=== PATIENT | male | born 1990 | race Caucasian/White ===

== ENCOUNTER 2017-07-27 14:18 | Emergency (ER) | payer SELFPAY ==
[2017-07-27] MEDS ORDERED: Diphtheria,Pertussis(Acell),Tetanus Vaccine 0.5 ML SDV IM ONE (15:15)
[2017-07-27] MEDS ORDERED: Lidocaine/EPINEPHrine/Tetracaine Soln 5 ML Each TOP ONE ×2 (15:15→15:19)
[2017-07-27] MEDS ORDERED: Bacitracin Oint 1 GM U/D Packet TOP ONE (15:59)
--- NOTE | 2017-07-27 16:03 | EDM.PDOC ---
ED HPI GENERAL MEDICAL PROBLEM - General Chief Complaint: Burn Stated Complaint: BURNED WITH BATTERY Time Seen by Provider: 07/27/17 15:07 Source of Information: Reports: Patient History Limitations: Reports: No Limitations - History of Present Illness INITIAL COMMENTS - FREE TEXT/NARRATIVE: 27 you presents to the ER following burn to left ring. He was working on pontoon and had arc from battery to wedding ring. Pt did pull ring off and degloved finger. Last tetanus 2007. Left 4-Ring finger Pain Score (Numeric/FACES): 8 - Related Data Allergies Allergy/AdvReac Type Severity Reaction Status Date / Time cephalexin Allergy Hives Verified 07/27/17 14:48 sulfamethoxazole Allergy Hives Verified 07/27/17 14:48 [From Bactrim] trimethoprim [From Bactrim] Allergy Hives Verified 07/27/17 14:48 Home Meds: Home Meds Ranitidine HCl [Zantac] 1 tab PO BID 07/27/17 [History] Past Medical History Gastrointestinal History: Reports: GERD Musculoskeletal History: Reports: Fracture Neurological History: Reports: Concussion - Past Surgical History GI Surgical History: Reports: Colonoscopy, EGD Social & Family History - Tobacco Use Smoking Status *Q: Never Smoker - Recreational Drug Use Recreational Drug Use: No ED ROS GENERAL - Review of Systems Review Of Systems: See Below Constitutional: Denies: Fever, Chills Respiratory: Denies: Shortness of Breath, Wheezing Cardiovascular: Denies: Chest Pain GI/Abdominal: Denies: Abdominal Pain ED EXAM, SKIN/RASH Exam: See Below Exam Limited By: No Limitations General Appearance: Alert, WD/WN, No Apparent Distress Respiratory/Chest: No Respiratory Distress Skin: Warm, Dry, Intact, Other (left ring finger sluffing skin post blistering circumfrential at base) Course - Vital Signs Last Recorded V/S: Last Vital Signs Temp 36.8 C 07/27/17 14:45 Pulse 72 07/27/17 14:45 Resp 16 07/27/17 14:45 BP 140/95 H 07/27/17 14:45 Pulse Ox 97 07/27/17 14:45 - Orders/Labs/Meds Orders: Active Orders 24 hr Category Date Time Status Vaccines to be Administered [RC] PER UNIT ROUTINE Care 07/27/17 15:16 Active Meds: Medications Discontinued Medications Generic Name Dose Route Start Last Admin Trade Name Tali PRN Reason Stop Dose Admin Bacitracin 2 dose 07/27/17 15:59 07/27/17 16:06 Bacitracin Oint 1 Gm TOP 07/27/17 16:00 2 dose ONETIME ONE Administration Diphtheria/Tetanus/Acell Pertussis 0.5 ml 07/27/17 15:15 07/27/17 15:27 Adacel IM 07/27/17 15:16 0.5 ml .ONCE ONE Administration Lidocaine/Tetracaine 5 ml 07/27/17 15:15 07/27/17 15:26 Let Soln TOP 07/27/17 15:16 5 ml ONETIME ONE Administration Lidocaine/Tetracaine 5 ml 07/27/17 15:19 07/27/17 15:26 Let Soln TOP 07/27/17 15:20 5 ml ONETIME ONE Administration - Re-Assessments/Exams Free Text/Narrative Re-Assessment/Exam: 07/27/17 16:20 LET applied for pain control. burn cleansed with shurclens and debred with tweezers. topical antibiotic applied and dressed. pt and educated on circumferential nature for burn and risk to the finger. Departure - Departure Time of Disposition: 16:03 Disposition: Home, Self-Care 01 Condition: Good Clinical Impression: Burn of finger Qualifiers: Encounter type: initial encounter Laterality: left Burn degree: partial thickness (2nd degree) Qualified Code(s): T23.222A - Burn of second degree of single left finger (nail) except thumb, initial encounter - Discharge Information Instructions: Burn Care, Adult, [id number] Referrals: PCP,None [Primary Care Provider] - Forms: ED Department Discharge Additional Instructions: wash with warm soapy water nightly. keep wound clean and covered observe finger for loss of blood flow. IF the finger increases in pain, turns white or blue, you need to be seen again - My Orders Last 24 Hours: My Active Orders 07/27/17 15:16 Vaccines to be Administered [RC] PER UNIT ROUTINE - Assessment/Plan Last 24 Hours: My Active Orders 07/27/17 15:16 Vaccines to be Administered [RC] PER UNIT ROUTINE
== END 2017-07-27 16:18 | disposition home or self-care (01) ==
LOC: JP.ED 14:18
DX: T23.222A Burn of second degree of single left finger (nail) except thumb, initial encounter (principal); Z23 Encounter for immunization; Z88.1 Allergy status to other antibiotic agents; Z88.2 Allergy status to sulfonamides
CPT/HCPCS: 90471; 90715; 99283; A9270